=== PATIENT | female | born 1955 | race Caucasian/White ===

== ENCOUNTER 2018-05-16 22:02 | Emergency (ER) | payer OTHER ==
[~2018-05-16] VITALS: Ht 165.1 cm; Wt 57.2 kg
[2018-05-16 23:48] VITALS: BP 159/77
== END 2018-05-16 23:41 | disposition home or self-care (01) ==
LOC: ED 22:02
DX: S99.921A Unspecified injury of right foot, initial encounter (principal); Z88.2 Allergy status to sulfonamides; W50.0XXA Accidental hit or strike by another person, initial encounter; Y93.89 Activity, other specified; Y92.89 Other specified places as the place of occurrence of the external cause; Y99.8 Other external cause status
CPT/HCPCS: 90715; J2001